=== PATIENT | female | born 1975 | race Caucasian/White ===

== ENCOUNTER → 2016-07-01 | Outpatient (CLI) | payer OTHER ==
[~2016-07-01] MED LIST: IBUP80TA PO; LEVOTAB10 PO; PERC5TAB6 PO; PROZ20CA11 PO; WELL100T PO; XANA0.25 PO; mylicon PO
[2016-07-02 13:56] LABS: CONTROL LINE INT CTR LINE PRESENT; HIV SCRN NEGATIVE (NEGATIVE); HIV SCRN1 NEGATIVE (NEGATIVE)
== END ==
LOC: M ADAMS 11:29
PROVIDERS: ATTEND Physician Assistant
DX: Z11.3 Encounter for screening for infections with a predominantly sexual mode of transmission (principal)

== ENCOUNTER → 2016-07-19 | Outpatient (CLI) | payer OTHER ==
--- NOTE | 2016-07-19 15:21 | REP ---
DIGITAL DIAGNOSTIC BILATERAL MAMMOGRAPHY WITH CAD AND FOCUSED LEFT BREAST SONOGRAPHY: HISTORY: History of left breast cyst followup. COMPARISON: Mammography March 06, 2016 and July 20, 2015 as well as July 14, 2015. Comparison sonography March 06, 2016. MAMMOGRAPHIC FINDINGS: The 8 mm nodular opacity noted previously in the inferomedial quadrant of the left breast is again seen unchanged from March 06, 2016. It appears a little smaller than on July 14, 2015. Scattered fibroglandular elements are seen mammographically in both breasts unchanged. No worrisome skin change is seen. No microcalcification or spiculation is observed. SONOGRAPHIC FINDINGS: Focused left breast sonography is performed from 8 o'clock position to 10 o'clock position in the inferomedial quadrant. At the 10 o'clock position, there is a 4 x 3 x 4 mm cyst 2.4 cm from the nipple unchanged from prior sonography. IMPRESSION: BIRADS category 2 benign stable bilateral mammography. Annual screening mammography suggested. BI-RADS/ACR category 2 mammogram. Benign finding(s). Routine annual screening mammography (for women over age 40). This mammogram was interpreted with the aid of an FDA-approved computer-aided detection system. The patient states she/he had a clinical breast exam in June 18, 2016. The patient letter being requested is M2. Signed by Devin Patel MD 07/19/2016 05:03 P
== END ==
LOC: M RAD 11:26
PROVIDERS: ATTEND Nurse Practitioner Women's Health
DX: R92.8 Other abnormal and inconclusive findings on diagnostic imaging of breast (principal)

== ENCOUNTER → 2016-09-27 | Outpatient (REF) | payer OTHER | LOC: M LAB REF 16:28 | PROVIDERS: ATTEND Physician Assistant | DX: N76.0 Acute vaginitis (principal); N39.0 Urinary tract infection, site not specified; Z20.89 Contact with and (suspected) exposure to other communicable diseases ==

== ENCOUNTER → 2017-10-17 | Outpatient (REF) | payer OTHER ==
[2017-10-17 19:35] LABS: CHLAMYDIA DNA AMPLIFICATION NEGATIVE (NEGATIVE); GC DNA AMPLIFICATION NEGATIVE (NEGATIVE)
[2017-10-20 11:42] LABS: HEPATITIS B SURFACE ANTIGEN NEGATIVE (NEGATIVE)
[2017-10-20 12:08] LABS: HEPATITIS C VIRUS ABY INDEX < 0.0 INDEX (<0.8)
[2017-10-20 12:09] LABS: HIV 1&2 SCREEN CENTAUR NEGATIVE (NEGATIVE)
== END ==
LOC: M SFHCWAGY 16:56
DX: Z11.3 Encounter for screening for infections with a predominantly sexual mode of transmission (principal)
CPT/HCPCS: 87340

== ENCOUNTER → 2017-10-17 | Outpatient (CLI) | payer OTHER | LOC: M WHC 14:58 | DX: Z12.31 Encounter for screening mammogram for malignant neoplasm of breast (principal); Z80.3 Family history of malignant neoplasm of breast; Z80.42 Family history of malignant neoplasm of prostate | CPT/HCPCS: 77067 ==

== ENCOUNTER → 2017-10-17 | Outpatient (REF) | payer OTHER | LOC: M SFHCWAGY 15:37 | DX: Z12.4 Encounter for screening for malignant neoplasm of cervix (principal) ==

== ENCOUNTER → 2018-02-03 | Outpatient (REF) | payer OTHER ==
[2018-02-03 19:26] LABS: LIPASE 119 U/L (73-393)
[2018-02-03 19:26] LABS: AMYLASE 47 U/L (25-115)
[2018-02-04 08:32] LABS: CONTROL LINE HPYORI INT CTR LINE PRESENT; H PYLORI QUALITATIVE IgG NEGATIVE (NEGATIVE)
== END ==
LOC: M LAB REF 17:02
DX: R10.9 Unspecified abdominal pain (principal)

== ENCOUNTER → 2019-05-10 | Outpatient (REF) | payer OTHER ==
[~2019-05-10] MED LIST changes: +PERC5TAB12 PO; -PERC5TAB6 PO
== END ==
LOC: M LAB REF 19:00
PROVIDERS: ATTEND Physician Assistant
DX: L02.211 Cutaneous abscess of abdominal wall (principal)

== ENCOUNTER 2019-09-03 07:07 | Emergency (ER) | payer OTHER ==
[~2019-09-03] VITALS: Ht 170.2 cm; Wt 91.7 kg
[2019-09-03] MEDS ORDERED: DULO1CAP6 (07:19)
[2019-09-03] MEDS ORDERED: ENAL5TAB (07:19)
[2019-09-03] MEDS ORDERED: OMEP-221 (07:19)
[2019-09-03] MEDS ORDERED: VALA500T5 (07:19)
[2019-09-03] MEDS ORDERED: ONDANSETRON 4MG/2ML VIAL (J2405) As Ordered ONE (07:34)
[2019-09-03] MEDS ORDERED: ONDANSETRON 4MG/2ML VIAL (J2405) IV ONE (07:45)
[2019-09-03] MEDS ORDERED: NS 1,000 ML IV ONE ×2 (08:00→08:30)
[2019-09-03 08:10] LABS: BASO % 0.4 % (0.0-1.0); EOS % 0.4 % (0.0-3.0); HEMATOCRIT 54.9 % (36.0-47.0); HEMOGLOBIN 18.2 g/dl (12.0-15.5); LYMPH # 0.4 10^3/uL (1.5-5.0); LYMPH % 3.3 % (24.0-44.0); MEAN CORPUSCULAR HEMOGLOBIN 31.1 pg (27.0-33.0); MEAN CORPUSCULAR HGB CONC 33.2 g/dl (32.0-36.5); MEAN CORPUSCULAR VOLUME 93.7 fl (80.0-96.0); MONO # 0.6 10^3/uL (0.0-0.8); MONO % 5.4 % (0.0-5.0); NEUTROPHILS # 9.7 10^3/uL (1.5-8.5); PLATELET COUNT, AUTOMATED 240 10^3/uL (150-450); RED BLOOD COUNT 5.86 10^6/uL (4.00-5.40); WHITE BLOOD COUNT 10.8 10^3/uL (4.0-10.0)
[2019-09-03 08:17] LABS: INFLUENZA A AMPLIFICATION POSITIVE (NEGATIVE); INFLUENZA B AMPLIFICATION NEGATIVE (NEGATIVE)
[2019-09-03 08:28] LABS: BLOOD UREA NITROGEN 15 MG/DL (7-18); CALCIUM LEVEL 9.4 MG/DL (8.5-10.1); CARBON DIOXIDE LEVEL 22 MEQ/L (21-32); CHLORIDE LEVEL 111 MEQ/L (98-107); CREATININE FOR GFR 1.01 MG/DL (0.55-1.30); GLOMERULAR FILTRATION RATE > 60.0 (>58); GLUCOSE, FASTING 179 MG/DL (70-100); POTASSIUM SERUM 4.4 MEQ/L (3.5-5.1); SODIUM LEVEL 141 MEQ/L (136-145)
[2019-09-03] MEDS ORDERED: OSELTAMIVIR PHOSPHATE 75 MG CAP (TAMIFLU) PO ONE (08:30)
[2019-09-03] MEDS ORDERED: ACETAMINOPHEN 325 MG TAB PO ONE (09:00)
[2019-09-03] MEDS ORDERED: OSEL75CA PO (10:44)
[2019-09-03] MEDS ORDERED: ONDA4TAB6 PO (10:44)
[2019-09-03 10:52] VITALS: BP 123/78
== END 2019-09-03 11:27 | disposition home or self-care (01) ==
LOC: M ED 07:07
DX: J09.X3 Influenza due to identified novel influenza A virus with gastrointestinal manifestations (principal); A08.11 Acute gastroenteropathy due to Norwalk agent; E86.0 Dehydration; I10 Essential (primary) hypertension; F32.9 Major depressive disorder, single episode, unspecified; F41.9 Anxiety disorder, unspecified; Z87.440 Personal history of urinary (tract) infections; Z79.899 Other long term (current) drug therapy; Z88.0 Allergy status to penicillin; Z88.1 Allergy status to other antibiotic agents
CPT/HCPCS: 80048; 85025; 87502; 87507; 96361; 96374; 99284; J2405

== ENCOUNTER → 2020-10-02 | Outpatient (REF) | payer OTHER ==
[~2020-10-02] MED LIST changes: +DULO1CAP6; +ENAL5TA; +OMEP-221; +ONDA4TAB6 PO; +OSEL75CA PO; +VALA500T5
== END ==
LOC: M LAB REF 16:14
PROVIDERS: ATTEND Nurse Practitioner Adult Health
DX: Z01.84 Encounter for antibody response examination (principal)

== ENCOUNTER → 2022-02-07 | Outpatient (REF) | payer OTHER ==
[~2022-02-07] MED LIST changes: -OMEP-221; +OMEP40CA5
== END ==
LOC: M LAB REF 15:59
PROVIDERS: ATTEND Physician Assistant
DX: B34.9 Viral infection, unspecified (principal); R50.9 Fever, unspecified

== ENCOUNTER → 2022-07-22 | Outpatient (REF) | payer OTHER | LOC: M LAB REF 16:41 | PROVIDERS: ATTEND Surgery | DX: C44.729 Squamous cell carcinoma of skin of left lower limb, including hip (principal) ==

== ENCOUNTER → 2022-08-07 | Outpatient (REF) | payer OTHER ==
[~2022-08-07] MED LIST changes: +ENAL1TAB48; -ENAL5TA
== END ==
LOC: M LAB REF 16:05
PROVIDERS: ATTEND Physician Assistant
DX: B34.9 Viral infection, unspecified (principal)